=== PATIENT | male | born 1940 | race Caucasian/White ===

== ENCOUNTER 2017-07-04 12:04 | Emergency (ER) | payer MEDICARE, OTHER ==
[2017-07-04 12:25] VITALS: BP 127/72
--- NOTE | 2017-07-04 13:02 | EDM.PDOC ---
ED HPI GENERAL MEDICAL PROBLEM - General Chief Complaint: ENT Problem Stated Complaint: BLOODY NOSE Time Seen by Provider: 07/04/17 12:05 Source of Information: Reports: Patient, Family, RN, RN Notes Reviewed History Limitations: Reports: No Limitations - History of Present Illness INITIAL COMMENTS - FREE TEXT/NARRATIVE: Patient presents the emergency room at [facility] complaining of a nosebleed. The patient states the nosebleed happened spontaneously. The patient denies any trauma or injury to the nose. The patient does not have a history of nosebleeds. The patient is not on any anticoagulation. The patient states he was merely just driving his vehicle today when the nosebleed started. The patient did try applying pressure for several minutes but could not get the bleeding to stop. Onset: Today, Sudden - Related Data Allergies Allergy/AdvReac Type Severity Reaction Status Date / Time No Known Allergies Allergy Verified 09/26/15 08:56 Home Meds: Home Meds Allopurinol 1 tab PO DAILY 09/18/15 [History] Aspirin 0.5 tab PO DAILY 09/18/15 [History] Finasteride 1 tab PO DAILY 09/18/15 [History] Metoprolol Succinate [Toprol XL] 1 tab PO BEDTIME 09/18/15 [History] Multivitamin [Multivitamins] 1 tab PO DAILY 09/18/15 [History] [place]-3 Fatty Acids/Fish Oil [[facility] Fish Oil 1,000 mg Softgel] 2 gm PO DAILY 09/17 [History] Omeprazole 1 tab PO DAILY 09/18/15 [History] Simvastatin 1 tab PO BEDTIME 09/18/15 [History] Tamsulosin HCl 1 tab PO .EVERYOTHER09/18/15 [History] Past Medical History HEENT History: Reports: Cataract Cardiovascular History: Reports: High Cholesterol, Hypertension, [place] Respiratory History: Reports: None Gastrointestinal History: Reports: Diverticulosis Genitourinary History: Reports: BPH Musculoskeletal History: Reports: Gout Neurological History: Reports: None Psychiatric History: Reports: None Endocrine/Metabolic History: Reports: None Hematologic History: Reports: None Immunologic History: Reports: None Oncologic (Cancer) History: Reports: Prostate Dermatologic History: Reports: None - Infectious Disease History Infectious Disease History: Reports: Chicken Pox, Measles, Mumps - Past Surgical History Head Surgeries/Procedures: Reports: None HEENT Surgical History: Reports: None Cardiovascular Surgical History: Reports: Coronary Artery Stent Respiratory Surgical History: Reports: None GI Surgical History: Reports: Appendectomy, Colonoscopy, Hernia Repair/Other Male Surgical History: Reports: Other (See Below) Musculoskeletal Surgical History: Reports: None Social & Family History - Tobacco Use Smoking Status *Q: Former Smoker Years of Tobacco use: 40 Packs/Tins Daily: 1 Used Tobacco, but Quit: Yes Month/Year Tobacco Last Used: 1997 Second Hand Smoke Exposure: No - Recreational Drug Use Recreational Drug Use: No ED ROS ENT - Review of Systems Review Of Systems: See Below Constitutional: Denies: Fever, Chills HEENT: Reports: Nosebleed Respiratory: Denies: Shortness of Breath, Cough Cardiovascular: Denies: Chest Pain, Palpitations Skin: Reports: No Symptoms Neurological: Reports: No Symptoms ED EXAM, ENT - Physical Exam Exam: See Below Exam Limited By: No Limitations General Appearance: Alert, No Apparent Distress Nose: Active Bleeding, Injected Turbinates Mouth/Throat: Normal Inspection Respiratory/Chest: No Respiratory Distress, Lungs Clear, Normal Breath Sounds Cardiovascular: Normal Peripheral Pulses, Regular Rate, Rhythm Neurological: Alert, Oriented Skin: Warm, Dry, Intact ED ENT PROCEDURES - Epistaxis Procedure Indication: Epistaxis, Uncontrolled Recent anticoagulants/antiplatlets: No Uncontrolled HTN: No Recent septal/nasal surgery: No Site of bleeding: Right Nare Clearing of clots: Patient Blew Nose Ice pack to area: No Chemical cautery: Silver Nitrate Topical Post cautery: Cellulose Patch Complications: No Course - Vital Signs Last Recorded V/S: Last Vital Signs Temp 36.9 C 07/04/17 12:22 Pulse 83 07/04/17 12:22 Resp 16 07/04/17 12:22 BP 127/72 07/04/17 12:22 Pulse Ox 94 L 07/04/17 12:22 Departure - Departure Time of Disposition: 13:01 Disposition: Home, Self-Care 01 Condition: Good Clinical Impression: Nosebleed - Discharge Information Instructions: Nosebleed, Adult Referrals: PCP,Not In Area [Primary Care Provider] - Additional Instructions: 1. Stay well hydrated and rest 2. Try picking at or blowing your nose 3. If the bleed starts again, apply firm pressure, do not tilt your head back 4. See your Primary as symptoms warrant 5. Call with any questions/concerns - Problem List Review Problem List Initiated/Reviewed/Updated: Yes
== END 2017-07-04 13:11 | disposition home or self-care (01) ==
LOC: VM.ED 12:04
DX: R04.0 Epistaxis (principal); E78.00 Pure hypercholesterolemia, unspecified; I10 Essential (primary) hypertension; I25.2 Old myocardial infarction; Z87.891 Personal history of nicotine dependence; Z79.82 Long term (current) use of aspirin; Z79.899 Other long term (current) drug therapy
CPT/HCPCS: 30901; 99283; 99283-GF-25